=== PATIENT | male | born 1970 | race Two or more races ===

== ENCOUNTER 2025-01-04 13:57 | Outpatient (AMB) | payer OTHER, SELFPAY ==
--- NOTE | 2025-01-04 14:13 | A.SPINEOV_ITS ---
Intake Visit Reasons: Neck pain & Left leg pain Intake Note: Mr. Gale is here today c/o neck, left arm and left leg pain. Brought MRI disc. Rehab Care Assistant Required: No Assessment & Plan Assessment & Plan (1) Cervical radiculopathy: Code(s): M54.12 - Radiculopathy, cervical region Category: Medical Plan Dear MARKY Kenny, Thank you for referring José to our office today. He is a pleasant 54-year-old male who comes in today for evaluation of severe neck pain and shooting pains into his left upper extremity. He reports this has been ongoing for about 1 year, and denies any known inciting incident. When describing his pain he states it starts in his neck, shoots into his left shoulder and down the dorsal surface of his left arm terminating in the 3rd and 4th digits. He does identify some numbness/tingling associated with the shooting pain down his arm. He reports that he has been evaluated by our colleagues at [facility], who attempted physical therapy and cortisone injections without significant relief of his symptoms. He was subsequently referred here for surgi shireen evaluation thereafter. He reports that his symptoms seem to be worse at night, causing him to sleep with his pillows arranged in a certain manner in order to obtain pain relief. Despite this, he still wakes up in pain overnight quite frequently. He has been attempting to utilize gabapentin, Tylenol, and ibuprofen to help mitigate his pain, however this only provides modest relief. He denies any issues with dexterity, and states he is still able to zip up his zippers and button buttons without significant issue. He denies dropping things around the home throughout the day. He denies any issues with bowel/bladder movement. He does report that he needs to ambulate with a cane, but feels it is due to his left leg weakness, and denies any issues with balance. PMH: Migraines, vasculopathy, cryoglobulemia, pulmonary HTN, thrombotic microangiopathy, tobbaco use, opioid use, depression, dyspnea, hypertriglyceridemia, hepatitis C. No reported surgical Hx. Social hx: The patient reports smoking 5 cigarettes close daily. He denies any other substance use. Medications: Till Advil, mirtazapine, clonidine, ibuprofen, oxycodone- acetaminophen, amoxicillin, naloxone, Opsumit, nicotine gum. Allergies: NKDA. 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 This is significantly weaker than his right upper extremity which maintains 5/5 strength. His bilateral lower extremities including proximal muscle groups are 5/5. He ambulates with the assistance of a cane but his gait is non spastic and nonantalgic. His reflexes are 2+ intact diffusely. He has no significant sensational deficits to light touch reported during examination. (-) Lyons's, (-) clonus, (-) bilateral straight leg raise. Imaging: MRI of the lumbar spine completed at [facility] (needed to be viewed using CD viewer in Dr. Long office) shows mild-moderate bialteral foraminal stenosis at L3-4. MRI of the cervical spine completed at [facility] is severely motion degraded and difficult to read properly. The Axial images are better than saggital. The patient appears to have severe right sided foraminal stenosis at C5-6 and severe bilateral foraminal stenosis at C6- 7. Impression: José is a pleasant 54-year-old male who comes in today for evaluation of 1 year of severe posterior neck pain shooting into his left upper extremity. His clinical picture is most consistent with a left-sided cervical radiculopathy. I believe his symptoms are most likely causing from the severe bilateral foraminal stenosis seen at C6-7. Typically this is something that Dr. Long would treat with anterior cervical diskectomy and fusion to decompress the nerve roots at this level. The main confounding factor here is that the patient has fairly significant right-sided foraminal stenosis at C5-6 and C6-7, however seems to be symptomatic from this. I would like to review his imaging with the attending neurosurgeon Dr. Long and will call him early next week with a updated surgical plan. Thank you for allowing us to care for your patient. The total time spent with this visit with this patient was 45 minutes reviewing history, physical exam, MRI imaging review, and implementation of treatment plan or further diagnostic testing Jose Long MD,PhD [facility] Coding Level of Care Code New Pt Level 4 (56371) Diagnoses Cervical radiculopathy M54.12
--- OUTSIDE RECORDS SUMMARY | 2025-01-04 14:59 | XMS_ITS | Clinical Summary ---
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 Role Phone Jacquelyn Salas MD Primary Care Provider [phone] Social History Tobacco Use Types Packs/Day Years Used Date Smoking Tobacco: Never Assessed Sex and Gender Information Value Date Recorded Sex Assigned at Not on file Legal Sex Male 4:57 PM EST Gender Identity Not on file Sexual Orientation Not on file Plan of Treatment Health Maintenance Due Date Last Done Comments DTaP,Tdap,and Td Vaccines (1 - Tdap) 02/01/1991 Hepatitis B Vaccines (1 of 3 - 19+ 3-dose series) 02/01/1991 Pneumococcal Vaccine: 50+ Ye ars (1 of 1 - PCV) 02/01/2022 Zoster Vaccines (1 of 2) 02/01/2022 COVID-19 Vaccine ( - 2023-2 5 season) 2024 Depression Screening 05/26/2024 Influenza Vaccine (#1) 2025 HIB Vaccines Aged Out No longer eligi ble based on patient's age to complete this topic HPV Vaccines Aged Out No longer eligi ble based on patient's age to complete this topic Hepatitis A Vaccines Aged Out No long er eligible based on patient's age to complete this topic IPV Vaccines Aged Out No longer eligi ble based on patient's age to complete this topic MMR Vaccines Aged Out No longer eligi ble based on patient's age to complete this topic Meningococcal ACWY Vaccine Aged Out N o longer eligible based on patient's age to complete this topic Meningococcal B Vaccine Aged Out No l onger eligible based on patient's age to complete this topic RSV Immunization Patients Un keri 20 months Aged Out No longer eligible b ased on patient's age to complete this topic Varicella Vaccines Aged Out No longer eligible based on patient's age to complete this topic Care Teams Diesel Fleet Mechanic Relationship Specialty Start Date End [place] [address] PCP - General Internal Medicine 12/09/16
== END 2025-01-04 14:59 | disposition home or self-care (01) ==
LOC: HO.HNS 13:58
PROVIDERS: PCP Internal Medicine; Referring Provider Student in an Organized Health Care Education/Training Program; Visit Provider Physician Assistant
DX: M54.12 Radiculopathy, cervical region (principal)
CPT/HCPCS: 99204

== ENCOUNTER → 2025-01-04 13:57 | Outpatient (BNVA) | payer OTHER, SELFPAY | PROVIDERS: PCP Internal Medicine; Referring Provider Student in an Organized Health Care Education/Training Program; Visit Provider Physician Assistant | DX: M54.12 Radiculopathy, cervical region (principal); I27.20 Pulmonary hypertension, unspecified | CPT/HCPCS: 99202 ==